=== PATIENT | male | born 1985 | race Caucasian/White ===

== ENCOUNTER 2016-09-05 20:33 | Emergency (ER) | payer BC ==
[~2016-09-05] VITALS: Ht 180.3 cm; Wt 95.0 kg
[~2016-09-05 20:33] MED LIST: CARAFATE100 MG/ML PO; LOSARTAN-HCTZ1 EAC2 PO; VALACYCLOVIR500 MG PO
[2016-09-05] MEDS ORDERED: CIPRODEX OTIC7.5 ML LEFT EAR (23:07)
[2016-09-05] MEDS ORDERED: PERCOCET 5/31 TABLET PO (23:07)
[2016-09-05 23:24] VITALS: BP 148/89
== END 2016-09-05 23:25 | disposition home or self-care (01) ==
LOC: EME 20:33
DX: H60.92 Unspecified otitis externa, left ear (principal); H66.92 Otitis media, unspecified, left ear; R09.81 Nasal congestion; I10 Essential (primary) hypertension; Z87.891 Personal history of nicotine dependence
CPT/HCPCS: 99281; 99283